=== PATIENT | female | born 1995 | race Caucasian/White ===

== ENCOUNTER 2018-06-15 01:24 | Emergency (ER) | payer MEDICAID ==
[~2018-06-15] VITALS: Ht 170.2 cm; Wt 48.2 kg
[~2018-06-15 01:24] MED LIST: NO HOME MEDICATIONS; NO HOME MEDS; ONDA4TAB12 PO
[2018-06-15 01:29] VITALS: BP 140/79
--- NOTE | 2018-06-15 03:27 | NUR ---
pt walked out
== END 2018-06-15 03:29 | disposition left against medical advice (07) ==
LOC: ER 01:25
DX: R05 Cough (principal); J00 Acute nasopharyngitis [common cold]; R09.89 Other specified symptoms and signs involving the circulatory and respiratory systems; Z53.21 Procedure and treatment not carried out due to patient leaving prior to being seen by health care provider

== ENCOUNTER 2018-10-05 19:54 | Emergency (ER) | payer MEDICAID ==
[~2018-10-05] VITALS: Ht 172.7 cm; Wt 65.2 kg
[2018-10-05 20:20] LABS: CLARITY,URINE SLIGHTLY CLOUDY (Clear); COLOR,URINE YELLOW (Yellow); GLUCOSE, URINE NEGATIVE (Neg); KETONES,URINE NEGATIVE (Neg); LEUKOCYTE ESTERASE ,URINE SMALL (Neg); NITRITES, URINE NEGATIVE (Neg); OCCULT BLOOD,URINE TRACE-INTACT (Neg); PH,URINE 8.5 (4.8-8.0); PROTEIN,URINE 30 mg/dl (Neg); URINE HCG NEGATIVE (NEG); UROBILINOGEN,URINE 0.2 E.U/dL (0.2-1.0)
[2018-10-05 20:22] LABS: UA COLLECTION TYPE CLN CATCH MIDSTREAM
[2018-10-05] MEDS ORDERED: ondansetron/PF 4mg/2ml inj IV ONE (20:25)
[2018-10-05] MEDS ORDERED: normal saline 1000ML IV soln IVB ONE (20:25)
[2018-10-05 20:38] LABS: BACTERIA,URINE 2+ /HPF (Neg); SQUAMOUS EPITHELIAL CELL,UR MODERATE /LPF (FEW); WBC,URINE TNTC /HPF (0-4)
[2018-10-05 20:39] LABS: MUCUS STRANDS MANY /LPF (Neg); RBC,URINE 0-2 /HPF (0-2)
[2018-10-05 20:51] LABS: BASOPHILS % (AUTO) 0.3 % (0-1); EOSINOPHILS % (AUTO) 0.2 % (0-6); HEMATOCRIT 37.3 % (35.0-45.0); HEMOGLOBIN 12.5 g/dl (12.0-16.0); LYMPHOCYTES # (AUTO) 1.5 X10'3 (1.1-4.8); LYMPHOCYTES % (AUTO) 16.7 % (21-51); MEAN CORPUSCULAR HEMOGLOBIN 31.2 PG (27.0-31.0); MEAN CORPUSCULAR HGB CONC 33.5 g/dL (33.0-36.5); MEAN CORPUSCULAR VOLUME 93.3 FL (78-98); MEAN PLATELET VOLUME 7.2 FL (7.4-10.4); MONOCYTES # (AUTO) 0.9 X10'3 (0-0.9); MONOCYTES % (AUTO) 10.3 % (2-12); NEUTROPHILS # (AUTO) 6.4 X10'3 (1.8-7.7); NEUTROPHILS % (AUTO) 72.5 % (42-75); PLATELET COUNT 173 X10'3 (140-440); WHITE BLOOD COUNT 8.9 X10'3 (4.5-11.0)
[2018-10-05 21:04] LABS: ALANINE AMINOTRANSFERASE 20 U/L (12-78); ALBUMIN 3.3 G/DL (3.4-5.0); ALBUMIN/GLOBULIN RATIO 0.7 (1.1-1.5); ALKALINE PHOSPHATASE 58 IU/L (46-116); AMYLASE 39 U/L (25-115); ANION GAP 9 (8-16); ASPARTATE AMINO TRANSFERASE 11 U/L (10-37); BILIRUBIN,TOTAL 0.8 MG/DL (0.1-1.0); BLOOD UREA NITROGEN 8 MG/DL (7-18); BUN/CREATININE RATIO 10.7 (6.6-38.0); CALCIUM 8.6 MG/DL (8.5-10.1); CHLORIDE 102 MMOL/L (99-107); CREATININE 0.75 MG/DL (0.40-0.90); GLUCOSE 106 MG/DL (70-104); LIPASE 78 U/L (73-393); POTASSIUM 3.6 MMOL/L (3.5-5.1); SODIUM 135 MMOL/L (135-145); TOTAL CARBON DIOXIDE 24.3 MMOL/L (24-32); TOTAL PROTEIN 7.9 G/DL (6.4-8.2); eGFR > 90 ML/MIN
[2018-10-05] MEDS ORDERED: CefTRIAXone/D5W-Rocephin 1gm 50 ML IV ONE (21:15)
[2018-10-05] MEDS ORDERED: CEPH500C5 PO (21:45)
[2018-10-05] MEDS ORDERED: ONDA4TAB6 PO (21:45)
[2018-10-05 22:43] VITALS: BP 126/79
== END 2018-10-05 22:46 | disposition home or self-care (01) ==
LOC: ER 19:55
DX: N10 Acute pyelonephritis (principal); R10.12 Left upper quadrant pain; F15.90 Other stimulant use, unspecified, uncomplicated; F11.90 Opioid use, unspecified, uncomplicated; R42 Dizziness and giddiness; Z86.19 Personal history of other infectious and parasitic diseases
CPT/HCPCS: 36415; 74176; 80053; 81001; 81025; 82150; 83690; 85025; 85610; 87077; 87088; 87186; 96361; 96365; 96375; 99284; J0696; J2405; J7030

== ENCOUNTER 2019-02-15 04:11 | Emergency (ER) | payer MEDICAID ==
[~2019-02-15] VITALS: Ht 170.2 cm; Wt 63.6 kg
[~2019-02-15 04:11] MED LIST changes: +ONDA4TAB6 PO
[2019-02-15 04:16] VITALS: BP 135/86
[2019-02-15] MEDS ORDERED: AMOX500C2 PO (04:38)
--- NOTE | 2019-02-15 04:47 | NUR ---
PT GIVEN DC INSTRUCTIONS. PT UPSET BECAUSE SHE FEELS SHE WAS "TREATED LIKE SHIT" BECAUSE HER CONCERNS FOR SEPSIS WERE NOT TAKEN SERIOUSLY. PT STATED "THIS FEELS EXACTLY LIKE I DID WHEN I WAS SEPTIC". THIS RN REASSURED PT THAT VS SHOW NO INDICATION OF SEPSIS, PT RESPONDED "HOW COULD THEY NOT? I'M HIGH SHIT RIGHT NOW THEY SHOULD SHOW THAT". ATTEMPTED TO RE-EDUCATE PT ON S/SX OF SEPSIS AND PT SHOWING NO INDICATIONS OF SUCH. MD [place] NOTIFIED
== END 2019-02-15 04:52 | disposition home or self-care (01) ==
LOC: ER 04:13
DX: K02.9 Dental caries, unspecified (principal); F15.90 Other stimulant use, unspecified, uncomplicated; F11.90 Opioid use, unspecified, uncomplicated
CPT/HCPCS: 99283

== ENCOUNTER 2019-05-18 16:43 | Emergency (ER) | payer MEDICAID ==
[~2019-05-18] VITALS: Ht 170.2 cm; Wt 70.8 kg
[2019-05-18 17:07] VITALS: BP 134/75
== END 2019-05-18 18:30 | disposition left against medical advice (07) ==
LOC: ER 16:46
DX: D22.4 Melanocytic nevi of scalp and neck (principal); M79.642 Pain in left hand; Z53.21 Procedure and treatment not carried out due to patient leaving prior to being seen by health care provider

== ENCOUNTER 2020-06-17 19:38 | Emergency (ER) | payer MEDICAID ==
[~2020-06-17] VITALS: Ht 172.7 cm; Wt 65.9 kg
[2020-06-17 19:42] VITALS: BP 130/80
== END 2020-06-17 22:50 | disposition left against medical advice (07) ==
LOC: ER 19:38
DX: N93.9 Abnormal uterine and vaginal bleeding, unspecified (principal); Z53.21 Procedure and treatment not carried out due to patient leaving prior to being seen by health care provider

== ENCOUNTER 2020-10-13 22:02 | Emergency (ER) | payer MEDICAID ==
[~2020-10-13] VITALS: Ht 172.7 cm; Wt 68.2 kg
[2020-10-13 22:21] VITALS: BP 115/82
--- NOTE | 2020-10-13 23:43 | NUR ---
Patient left premises prior to being seen by
== END 2020-10-13 23:44 | disposition left against medical advice (07) ==
LOC: ER 22:02
DX: M25.561 Pain in right knee (principal); M25.562 Pain in left knee; Z53.21 Procedure and treatment not carried out due to patient leaving prior to being seen by health care provider

== ENCOUNTER 2021-01-15 19:55 | Emergency (ER) | payer MEDICAID ==
[~2021-01-15] VITALS: Ht 172.7 cm; Wt 68.0 kg
[2021-01-15 20:07] VITALS: BP 133/89
== END 2021-01-16 01:41 | disposition left against medical advice (07) ==
LOC: ER 19:56
DX: R22.43 Localized swelling, mass and lump, lower limb, bilateral (principal); Z53.21 Procedure and treatment not carried out due to patient leaving prior to being seen by health care provider

== ENCOUNTER 2021-02-02 00:15 | Emergency (ER) | payer MEDICAID ==
[~2021-02-02] VITALS: Ht 172.7 cm; Wt 69.4 kg
[2021-02-02 00:24] VITALS: BP 136/81
[2021-02-02] MEDS ORDERED: CLIN-97 PO (00:48)
[2021-02-02] MEDS ORDERED: clindamycin 150mg capsule PO ONE (00:50)
== END 2021-02-02 01:42 | disposition home or self-care (01) ==
LOC: EDUNIT# 00:15 → ER 00:16
DX: L03.116 Cellulitis of left lower limb (principal); L03.115 Cellulitis of right lower limb; F15.90 Other stimulant use, unspecified, uncomplicated; F11.90 Opioid use, unspecified, uncomplicated; Z86.19 Personal history of other infectious and parasitic diseases; Z72.89 Other problems related to lifestyle; Z79.899 Other long term (current) drug therapy
CPT/HCPCS: 99283

== ENCOUNTER 2021-03-31 08:55 | Emergency (ER) | payer MEDICAID ==
[~2021-03-31] VITALS: Ht 172.7 cm; Wt 71.5 kg
[~2021-03-31 08:55] MED LIST changes: +CLIN-97 PO
[2021-03-31 09:01] VITALS: BP 142/81
[2021-03-31] MEDS ORDERED: CefTRIAXone 500MG IM Kit w/LIDOcaine IM ONE (09:45)
[2021-03-31] MEDS ORDERED: azithromycin 250mg tablet PO ONE (09:45)
[2021-03-31] MEDS ORDERED: PENICILLIN G BENZATHINE 2,400,000 UNIT/4 ML SYRINGE IM ONE (09:45)
[2021-03-31] MEDS ORDERED: ACYC200C PO (10:02)
[2021-03-31] MEDS ORDERED: CefTRIAXone 1000mg IM Kit (w/lidocaine diluent) IM ONE (10:10)
[2021-03-31 10:14] LABS: URINE HCG NEGATIVE (NEG)
[2021-03-31 10:49] LABS: CLARITY,URINE SLIGHTLY CLOUDY (Clear); COLOR,URINE YELLOW (Yellow); GLUCOSE, URINE NEGATIVE (Neg); KETONES,URINE NEGATIVE (Neg); LEUKOCYTE ESTERASE ,URINE NEGATIVE (Neg); NITRITES, URINE NEGATIVE (Neg); OCCULT BLOOD,URINE NEGATIVE (Neg); PROTEIN,URINE NEGATIVE (Neg); UROBILINOGEN,URINE 0.2 E.U/dL (0.2-1.0)
[2021-03-31 10:52] LABS: UA COLLECTION TYPE CLN CATCH MIDSTREAM
[2021-03-31 10:54] LABS: AMORPHOUS URATES 2+; BACTERIA,URINE FEW /HPF (Neg); RBC,URINE NONE SEEN /HPF (0-2); SQUAMOUS EPITHELIAL CELL,UR FEW /LPF (FEW); WBC,URINE 0-4 /HPF (0-4)
== END 2021-03-31 10:22 | disposition home or self-care (01) ==
LOC: ER 08:55
DX: A64 Unspecified sexually transmitted disease (principal); L03.314 Cellulitis of groin; R10.32 Left lower quadrant pain; F15.90 Other stimulant use, unspecified, uncomplicated; F11.90 Opioid use, unspecified, uncomplicated; Z86.19 Personal history of other infectious and parasitic diseases; Z72.89 Other problems related to lifestyle; Z79.2 Long term (current) use of antibiotics; Z79.899 Other long term (current) drug therapy
CPT/HCPCS: 81001; 81025; 96372; 99284; J0561; J0696

== ENCOUNTER 2022-06-14 13:57 | Emergency (ER) | payer MEDICAID ==
[~2022-06-14] VITALS: Ht 172.7 cm; Wt 68.0 kg
[2022-06-14 14:41] VITALS: BP 125/77
[2022-06-14] MEDS ORDERED: LIDOcaine 1% W/epiNEPHrine 1:100,000 20ml vial IJ ONE (16:30)
[2022-06-14] MEDS ORDERED: LIDOcaine 1% (10mg/ml)w/preservative inj. 20ml MDV IJ ONE ×2 (16:35)
[2022-06-14] MEDS ORDERED: LIDOcaine 1% 30ml preserv. free vial SQ STA (16:38)
[2022-06-14] MEDS ORDERED: LIDOcaine 1% (10mg/ml) 2ml vial SQ ONE (16:40)
[2022-06-14] MEDS ORDERED: LIDOcaine 1% (10mg/ml)w/preservative inj. 20ml MDV SQ STA ×2 (16:49)
[2022-06-14] MEDS ORDERED: HYDR-3965 PO (17:04)
[2022-06-14] MEDS ORDERED: IBUP-1986 PO (17:04)
[2022-06-14] MEDS ORDERED: SULF1TAB49 PO (17:04)
[2022-06-14] MEDS ORDERED: CEPH-585 PO (17:04)
[2022-06-14] MEDS ORDERED: cephalexin 250mg capsule PO ONE (17:30)
[2022-06-14] MEDS ORDERED: sulfamethoxazole/trimethoprim DS (800/160mg) tablet PO ONE (17:30)
== END 2022-06-14 17:59 | disposition home or self-care (01) ==
LOC: ER 13:57
DX: L02.512 Cutaneous abscess of left hand (principal); F15.90 Other stimulant use, unspecified, uncomplicated; F11.90 Opioid use, unspecified, uncomplicated; Z86.19 Personal history of other infectious and parasitic diseases; Z72.89 Other problems related to lifestyle; Z79.899 Other long term (current) drug therapy
CPT/HCPCS: 73140; 87070; 87077; 87186; 96372; 99284; A6449